=== PATIENT | female | born 1990 | race Two or more races ===

== ENCOUNTER → 2024-03-01 | Outpatient (CLI) | payer BC ==
[2024-03-01 13:18] LABS: Amphetamine Screen, Urine Neg (NEGATIVE); Barbiturate Scree,Urine Neg (NEGATIVE); Benzodiazephine Screen, Urine Neg (NEGATIVE); Cocaine Screen, Urine Neg (NEGATIVE)
[2024-03-01 13:19] LABS: Cannabinoid Screen, Urine Neg (NEGATIVE); Opiate Scree,Urine Neg (NEGATIVE); Phencyclidine Screen, Urine Neg (NEGATIVE)
[2024-03-02 07:07] LABS: RPR Non Reactive (Non Reactive)
[2024-03-02 08:06] LABS: Varicella Zoster IgG Antibody Non Reactive (Non Reactive)
[2024-03-03 04:06] LABS: Chlamydia Trachomatis, NAA Negative (Negative); Neisseria gonorrhoeae, NAA Negative (Negative)
== END | disposition home or self-care (01) ==
LOC: LAB 12:16
PROVIDERS: ATTEND Obstetrics & Gynecology
DX: Z34.80 Encounter for supervision of other normal pregnancy, unspecified trimester (principal); Z31.430 Encounter of female for testing for genetic disease carrier status for procreative management; N39.0 Urinary tract infection, site not specified
CPT/HCPCS: 36415; 80307; 86592; 86703; 86787; 86850; 86900; 86901; 87086; 87340

== ENCOUNTER 2024-03-18 08:08 | Emergency (ER) | payer BC ==
[~2024-03-18] VITALS: Ht 165.1 cm; Wt 96.1 kg
[2024-03-18 09:08] LABS: Urine Bacteria FEW /hpf (None Seen); Urine Blood 3+ /uL (Negative); Urine Clarity Ex.Turbid (Clear); Urine Color Light-Orange (Yellow); Urine Mucus FEW (None Seen); Urine Protein, UAD TRACE (Negative); Urine Specific Gravity 1.018 (1.001-1.035); Urine Urobilinogen Normal (Negative); Urine WBC 6 /hpf (0 - 5)
[2024-03-18 09:34] VITALS: BP 151/99; PULSE 118; RESP 16; TEMP 98.9; O2SAT 100
== END 2024-03-18 09:48 | disposition home or self-care (01) ==
LOC: ER 08:08
DX: O20.9 Hemorrhage in early pregnancy, unspecified (principal); R10.2 Pelvic and perineal pain; Z3A.11 11 weeks gestation of pregnancy
CPT/HCPCS: 36415; 76801; 81001; 84702

== ENCOUNTER 2024-05-19 12:03 | Emergency (ER) | payer BC ==
[~2024-05-19] VITALS: Ht 165.1 cm; Wt 97.6 kg
[2024-05-19 13:21] VITALS: BP 109/68; PULSE 107; RESP 18; TEMP 98.4; O2SAT 99
[2024-05-19] MEDS ORDERED: AZIT500T66 PO (13:25)
[2024-05-19] MEDS ORDERED: ACET-1304 PO (13:25)
--- NOTE | 2024-05-19 13:30 | ED.PDOC ---
Eye-HPI HPI Comments A 33 YEAR OLD FEMALE PRESENTS TO THE ED WITH COMPLAINT OF SORE THROAT. PATIENT STATES SHE HAS BEEN EXPERIENCING A SORE THROAT AND BODY ACHES FOR THE PAST 1 WEEK. PATIENT NOTES SHE IS CURRENTLY 20 WEEKS . PATIENT DENIES FEVER, CHILLS, SHORTNESS OF BREATH, CHEST PAIN, ABDOMINAL PAIN, NAUSEA, VOMITING, HEADACHE, OR OTHER COMPLAINTS. NO OTHER SYMPTOMS OR MODIFYING FACTORS AT THIS TIME. PATIENT IS ALERT, ORIENTED X 4, AND HAS STEADY GAIT. Chief Complaint: Sore Throat Time Seen by MD: 13:06 Primary Care Provider: MICHELLE Calderon Notes: Nurses Notes, Medications, Allergies Allergies: Coded Allergies: NO KNOWN ALLERGIES (Unverified , 03/18/24) Home Meds Active Scripts Acetaminophen (Tylenol Extra Strength Fo) 500 Mg Tab, 650 MG PO TID, #30 TAB Prov:MIGUE FOSTER 05/19/24 Azithromycin (Azithromycin) 500 Mg Tab, 1 TAB PO DAILY, #5 TAB Prov:MIGUE FOSTER 05/19/24 Information Source: Patient Mode of Arrival: Ambulatory Timing: Days Duration: Since onset, Days Prehospital treatment: None Quality: Pain, Red Lids: Normal Conjunctiva: Normal Cornea: Normal Pupils: Normal EOM: Normal Fundus: Normal Slit lamp exam: Normal Anterior chamber: Normal Mouth Location: Pharynx Mouth: Normal ENT Ear Exam: Normal, Normal, Normal Nose: Normal Sinuses: Normal Oropharynx: Tonsillar hypertrophy, Red Onset: Spontaneous Throat Exposed to: None History of: None Last Tetanus: Unknown Modifying factors: Nothing Associated signs and symptoms: Sore Throat Past Medical History PAST MEDICAL HISTORY: Denies Surgical History: Denies all surgeries RAT BREEDER History: Spontaneous Family History Family History: Reviewed,noncontributory to illness Social History Smoker: Non-Smoker Alcohol: Denies ETOH Use Drugs: Denies Drug Use Lives In: Home Constitutional: denies: chills, diaphoresis, fatigue, fever, malaise, sweats, weakness, others EENTM: reports: throat pain, throat swelling; denies: blurred vision, double vision, ear bleeding, ear discharge, ear drainage, ear pain, ear ringing, eye pain, eye redness, hearing loss, mouth pain, mouth swelling, nasal discharge, nose bleeding, nose congestion, nose pain, photophobia, tearing, voice changes, others Respiratory: denies: cough, hemoptysis, orthopnea, SOB at rest, shortness of breath, SOB with excertion, stridor, wheezing, others Cardiovascular: denies: chest pain, dizzy spells, diaphoresis, Dyspnea on exertion, edema, irregular heart beat, left arm pain, lightheadedness, palpitations, PND, syncope, others Gastrointestinal: denies: abdomen distended, abdominal pain, blood streaked bowels, constipated, diarrhea, dysphagia, difficulty swallowing, hematemesis, melena, nausea, poor appetite, poor fluid intake, rectal bleeding, rectal pain, vomiting, others Genitourinary: denies: abnormal vagina bleeding, burning, dyspareunia, dysuria, flank pain, frequency, hematuria, incontinence, pain, , vagina discharge, urgency, others Neurological: denies: dizziness, fainting, headache, left sided numbness, left sided weakness, numbness, paresthesia, pre-existing deficit, right sided numbness, right sided weakness, seizure, speech problems, tingling, tremors, weakness, others Musculoskeletal: reports: muscle pain; denies: back pain, gout, joint pain, joint swelling, muscle stiffness, neck pain, others Integumetry: denies: bruises, change in color, change in hair/nails, dryness, laceration, lesions, lumps, rash, wounds, others Allergic/Immunocompromised: denies: Difficulty Healing, Frequent Infections, Hives, Itching, others Hematologic/Lymphatic: denies: anemia, blood clots, easy bleeding, easy bruising, swollen glands, others Endocrine: denies: excessive hunger, excessive sweating, excessive thirst, excessive urination, flushing, intolerance to cold, intolerance to heat, unexplained weight gain, unexplained weight loss, others Psychiatric: denies: anxiety, bipolar disorder, depression, hopeless, panic disorder, schizophrenia, sleepless, suicidal, others All Other Systems: Reviewed and Negative Physical Exam General Appearance: No Apparent Distress, Normal HEENT: PERRL/EOMI, Pharyngeal Erythema (TONSILLAR SWELLING, NO EXUDATES. ), TMs Normal Neck: Full Range of Motion, Non-Tender, Normal, Normal Inspection Respiratory: Chest Non-Tender, Lungs Clear, No Accessory Muscle Use, No Respiratory Distress, Normal Breath Sounds Cardiovascular: No Edema, No JVD, No Murmur, No Gallop, Normal Peripheral Pulses, Regular Rate/Rhythm Breast Exam: Deferred Gastrointestinal: No Organomegaly, Non Tender, No Pulsatile Mass, Normal Bowel Sounds, Soft Genitalia: Deferred Pelvic: Deferred Rectal: Deferred Extremities: No calf tenderness, Normal capillary refill, Normal inspection, Normal range of motion, Non-tender, No pedal edema Musculoskeletal : Apperance: Normal Neurologic: Alert, dental laboratory technology teacher II-XII nml as Tested, No Motor Deficits, Normal Affect, Normal Mood, No Sensory Deficits Cerebellar Function: Normal Reflexes: Normal Skin: Dry, Normal Color, Warm Peripheral Pulses: 2+ carotid (R), 2+ carotid (L), 2+ dorsalis pedis (R), 2+ dorsalis pedis (L) Lymphatic: No Adenopathy Was a procedure done? Was a procedure done?: No EENT DIFF Eye: N/A Ear: Otitis Media, Pharyngitis, Sinusitis Nose: N/A Mouth: N/A Sore Throat: Pharyngitis, Streptococcal, Viral Pharyngitis, URI X-Ray, Labs, Meds, VS Vital Signs Date Time Temp Pulse Resp B/P (MAP) Pulse Ox O2 Delivery O2 Flow Rate FiO2 05/19/24 13:21 107 18 99 Room Air 05/19/24 13:21 98.4 107 18 109/68 (82) 99 98.4 05/19/24 12:22 98.4 107 18 109/68 (82) 99 X-Ray, Labs, Meds, VS Comment EXTERNAL MEDICAL RECORDS REVIEWED: [NONE] INDEPENDENT HISTORIANS: [NONE] SOCIAL DETERMINANTS OF HEALTH: [NONE] LABS ORDERED: NONE REVIEWED AND INTERPRETED RESULTS: NONE IMAGING ORDERED: NONE TREATMENTS ORDERED: NONE PROCEDURES PERFORMED: NONE CRITICAL CARE TIME: NONE I HAVE DISCUSSED THE PATIENT WITH THE ATTENDING PHYSICIAN DR. OLSON AND HE AGREES WITH THE PATIENT'S PLAN OF CARE AND DISPOSITION. BASED ON HISTORY OF PRESENT ILLNESS, AND PHYSICAL EXAM, PATIENT WILL BE DISCHARGED HOME. SHARED DECISION MAKING: PATIENT INSTRUCTED TO FOLLOW UP WITH PRIMARY CARE PROVIDER IN 1-2 DAYS FOR RE-EVALUATION OF SYMPTOMS. PATIENT VERBALIZES UNDERSTANDING TO RETURN TO ED FOR NEW OR WORSENING SYMPTOMS OR IF FOLLOW UP WITH PCP CANNOT BE OBTAINED. PATIENT FEELS COMFORTABLE GOING HOME AT THIS TIME. ALL QUESTIONS ADDRESSED AT TIME OF DISCHARGE. Time of 1ST Reevaluation: 13:33 Reevaluation 1ST: Improved Patient Education/Counseling: Diagnosis, Treatment, Need For Follow Up Family Education/Counseling: Diagnosis, Treatment, Need For Follow Up Medical Screening: No EMC Exist At This Time Departure 1 Departure Time of Disposition: 13:34 Impression: Primary Impression: Acute tonsillitis Qualified Codes: J03.90 - Acute tonsillitis, unspecified Disposition: HOME / SELF CARE / HOMELESS Condition: Stable Additional Instructions: FOLLOW-UP WITH PCP AND DIRECTOR LIFE IN 1 TO 2 DAYS. TAKE MEDICATIONS PRESCRIBED. RETURN TO ED FOR ANY NEW OR WORSENING SYMPTOMS. e-Prescriptions Acetaminophen (Tylenol Extra Strength Fo) 500 Mg Tab 650 MG PO TID, #30 TAB Prov: IMGUE FOSTER 05/19/24 Azithromycin (Azithromycin) 500 Mg Tab 1 TAB PO DAILY, #5 TAB Prov: MIGUE FOSTER 05/19/24 Discharged With: Self Critical Care Note Critical Care Time?: No Stability Stability form required: No I personally scribed for MIGUE FOSTER ([email or web address]) on 05/19/24 at 13:30. Electronically submitted by Elia Bethea ([email or web address]). MIGUE FOSTER May 19, 2024 13:30
== END 2024-05-19 13:38 | disposition home or self-care (01) ==
LOC: ER 12:12
DX: O99.512 Diseases of the respiratory system complicating pregnancy, second trimester (principal); J03.90 Acute tonsillitis, unspecified; Z79.899 Other long term (current) drug therapy; Z3A.20 20 weeks gestation of pregnancy

== ENCOUNTER → 2024-07-13 | Outpatient (CLI) | payer BC ==
[~2024-07-13] MED LIST: ACET-1304 PO; AZIT500T66 PO
[2024-07-13 07:37] LABS: Basophils # (auto) 0 10 ^3/uL (0-0.2); Basophils % (auto) 0.1 % (0.0-2.0); Eosinophils # (auto) 0.1 10 ^3/uL (0-0.8); Eosinophils % (auto) 0.7 % (0.0-7.0); Hematocrit 41.3 % (36.0-46.0); Hemoglobin 13.7 g/dL (12.2-16.2); Lymphocytes # (auto) 2.7 10 ^3/uL (0.4-5.4); Lymphocytes % (auto) 20.7 % (10.0-50.0); Mean Corpuscular Hemoglobin 29.3 pg (28.0-32.0); Mean Corpuscular Hgb Conc. 33.1 g/dL (32.0-36.0); Mean Corpuscular Volume 88.6 fL (80.0-100.0); Monocytes # (auto) 0.9 10 ^3/uL (0-1.3); Monocytes % (auto) 7.1 % (0.0-12.0); Neutrophils # (auto) 9.3 10 ^3/uL (1.6-8.6); Neutrophils % (auto) 71.4 % (37.0-80.0); Nucleated Red Blood Cells % 0.1 %; Platelet Count (auto) 259 10^3/uL (140-450); Red Blood Cells 4.66 10^6/uL (4.0-5.20); Red Cell Distribution Width 12.8 % (11.8-14.3)
[2024-07-14 08:07] LABS: RPR Non Reactive (Non Reactive)
[2024-07-14 11:07] LABS: Rubeola IgG Antibody <13.5 AU/mL (Immune >16.4)
== END | disposition home or self-care (01) ==
LOC: LAB 07-08 08:06
DX: O09.90 Supervision of high risk pregnancy, unspecified, unspecified trimester (principal); Z3A.00 Weeks of gestation of pregnancy not specified
CPT/HCPCS: 36415; 82951; 85025; 86592; 86703; 86765

== ENCOUNTER 2024-09-10 09:50 | Observation (INO) | payer BC ==
--- NOTE | 2024-09-10 10:27 | DVHDS2 ---
Physician Discharge Progress N Final Diagnosis: IUP 36.5 wk, GDMA2, AMA Secondary Diagnosis: Encounter for surveillance Operations or Procedures: Operations or Procedures NST/BPP /LOUIE all normal Commentary: Commentary Not in labor Condition on Discharge: Stable Disposition: Home Discharge Instructions: Diet: Consistent carbohydrate Activity: Light activity Follow Up/Referral: as scheduled Medications: NA Follow Up Care: Discharge Statement: "Patient was advised to return to the ER or call 911 if any headaches, dizziness, shortness of breath, chest pain, abdominal pain, bleeding, fevers, or worsening of medical condition. Patient was counseled about treatment plan, medications, possible side effects, patientverbalized understanding. All questions were answered to the best of my ability. This discharge took greater then 30 minutes in planning, reviewing documentation, counseling the patient, and discussing with other team members." Visit Coding OBGYN Date of Service: Sep 10, 2024 Billing Provider: DANNY CARMONA DO NUTS AND BOLTS ASSEMBLER Common Visit Codes: 91442-XVR/OBS SAME DATE (HIGH) DANNY CARMONA DO Sep 10, 2024 10:27
--- NOTE | 2024-09-10 10:36 | DVH ---
OB ULTRASOUND, LIMITED CLINICAL INDICATION: gdma2/ama TECHNIQUE: Multiple grayscale ultrasound and M-mode images were obtained of the pelvis for evaluation of intrauterine . COMPARISON: None FINDINGS /impression: A single living fetus is seen in cephalic presentation. Biophysical profile: 12/23 breathin movements: 2 tone: 2 Amniotic fluid: 2 Placenta: Posterior. Amniotic fluid: Visibly normal. LOUIE 8.85 cm heart rate: 155 beats/min. A complete anatomic survey was not performed on this exam.
[2024-09-10] MEDS ORDERED: PREN-96 PO (10:49)
== END 2024-09-10 11:17 | disposition home or self-care (01) ==
LOC: LDRP 09:50 → INTOOBSV 09:50
PROVIDERS: ADMIT Obstetrics & Gynecology; ATTEND Obstetrics & Gynecology
DX: O24.419 Gestational diabetes mellitus in pregnancy, unspecified control (principal); Z98.890 Other specified postprocedural states; Z79.899 Other long term (current) drug therapy; Z3A.36 36 weeks gestation of pregnancy
CPT/HCPCS: 76818; 81002; 82948; 82962; 94760; G0378; 76819

== ENCOUNTER 2024-09-13 13:50 | Observation (INO) | payer BC ==
[~2024-09-13 13:50] MED LIST changes: +PREN-96 PO
--- NOTE | 2024-09-13 15:26 | DVH ---
BIOPHYSICAL PROFILE HISTORY: GDMA2 Comparison Study: None available at time of dictation. TECHNIQUE: Multiple real-time grayscale sonographic images through the gravid uterus of the fetus wit h duplex doppler color flow and M-mode spectral analysis FINDINGS: BIOPHYSICAL PROFILE: breathing score: 2 movement score: 2 tone score: 2 Quantitative LOUIE score: 2 (LOUIE: 9.5 cm.) Total score: 8/8 Single live fetus in cephalic presentation. heart rate 147 beats per minute. Posterior placenta without previa or abruption Biophysical profile score 8/8 corresponding to an DAYA of 10/03/24 IMPRESSION: Biophysical profile score: 8/8
--- NOTE | 2024-09-13 22:57 | DVHDS2 ---
Physician Discharge Progress N Final Diagnosis: testing for GDM, A1/AMA Operations or Procedures: Operations or Procedures 34yo IUP@37.0wks VSS NST reactive FKC/labor precautions reviewed. Dr. Méndez consulted, agrees with POC. Other Interventions Other Interventions [address] [address] Ph: [phone] DIAGNOSTIC IMAGING Diagnostic Imaging Report : [id number] Signed PATIENT: HILDA PAL ACCT: [id number] UNIT: [id number] : 1990 LOC: [facility] ROOM / BED: [facility] / A AGE / SEX: 34 / F ADM STATUS: ADM IN SERVICE [id number] ORDERING PHYSICIAN: GUILLERMO DEVINE CNM PROCEDURE(s): BPP - BIOPHYSICAL PROFILE REASON: GDMA2 ORDER NUMBER(s): [id number], ACCESSION NUMBER(s): [id number] BIOPHYSICAL PROFILE HISTORY: GDMA2 Comparison Study: None available at time of dictation. TECHNIQUE: Multiple real-time grayscale sonographic images through the gravid uterus of the fetus with duplex doppler color flow and M-mode spectral analysis FINDINGS: BIOPHYSICAL PROFILE: breathing score: 2 movement score: 2 tone score: 2 Quantitative LOUIE score: 2 (LOUIE: 9.5 cm.) Total score: 8/8 Single live fetus in cephalic presentation. heart rate 147 beats per minute. Posterior placenta without previa or abruption Biophysical profile score 8/8 corresponding to an DAYA of 10/03/24 IMPRESSION: Biophysical profile score: 8/8 ATED BY: REHAN BRIGHT MD DICTATED DATE/TIME: 09/13/24 152 SIGNED BY: REHAN BRIGHT MD SIGNED DATE/TIME: 09/13/24 1524 CC: Condition on Discharge: Stable Disposition: Home Discharge Instructions: Diet: Consistent carbohydrate Activity: No Restrictions, As Tolerated Medications: see med list Follow Up Care: Specialist: f/u in 3 days Discharge Statement: "Patient was advised to return to the ER or call 911 if any headaches, dizziness, shortness of breath, chest pain, abdominal pain, bleeding, fevers, or worsening of medical condition. Patient was counseled about treatment plan, medications, possible side effects, patientverbalized understanding. All questions were answered to the best of my ability. This discharge took greater then 30 minutes in planning, reviewing documentation, counseling the patient, and discussing with other team members." Visit Coding OBGYN Date of Service: Sep 13, 2024 Billing Provider: GUILLERMO DEVINE CNM PRODUCT ENGINEER Common Visit Codes: [id number] OBS CARE (HIGH) PRODUCT ENGINEER Procedure Codes: 91194-72- NON-STRESS TEST GUILLERMO DEVINE CNM Sep 13, 2024 22:57
== END 2024-09-13 16:22 | disposition home or self-care (01) ==
LOC: LDRP 13:50
PROVIDERS: ADMIT Obstetrics & Gynecology; ATTEND Obstetrics & Gynecology
DX: O24.419 Gestational diabetes mellitus in pregnancy, unspecified control (principal); O09.513 Supervision of elderly primigravida, third trimester; Z98.890 Other specified postprocedural states; Z79.899 Other long term (current) drug therapy; Z3A.37 37 weeks gestation of pregnancy
CPT/HCPCS: 76818; 81002; 82948; 82962; 94760; G0378; 76819

== ENCOUNTER 2024-09-16 06:04 | Observation (INO) | payer BC ==
--- NOTE | 2024-09-16 10:03 | DVH ---
BIOPHYSICAL PROFILE HISTORY: GDMA1 Comparison Study: None available at time of dictation. TECHNIQUE: Multiple real-time grayscale sonographic images through the gravid uterus of the fetus wit h duplex doppler color flow and M-mode spectral analysis FINDINGS: BIOPHYSICAL PROFILE: breathing score: 2 movement score: 2 tone score: 2 Quantitative LOUIE score: 2 (LOUIE: 9.9 cm.) Total score: 8/8 Single live fetus in cephalic presentation. heart rate 132 beats per minute. Grade 3 fundal placenta without previa or abruption Biophysical profile score 8/8 corresponding to an DAYA of 10/03/24 IMPRESSION: Biophysical profile score: 8/8
--- NOTE | 2024-09-17 07:50 | DVHDS2 ---
Physician Discharge Progress N Final Diagnosis: iup at 37wks gdm Operations or Procedures: Operations or Procedures nst reviewed reactive ,sono nl Condition on Discharge: Good Disposition: Home Discharge Instructions: Diet: Consistent carbohydrate Activity: No Restrictions, As Tolerated Medications: na Follow Up Care: Specialist: 3d Discharge Statement: "Patient was advised to return to the ER or call 911 if any headaches, dizziness, shortness of breath, chest pain, abdominal pain, bleeding, fevers, or worsening of medical condition. Patient was counseled about treatment plan, medications, possible side effects, patientverbalized understanding. All questions were answered to the best of my ability. This discharge took greater then 30 minutes in planning, reviewing documentation, counseling the patient, and discussing with other team members." Visit Coding OBGYN Date of Service: September 16, 2024 Billing Provider: YAHIR HILL DO FINANCIAL SOLUTIONS ADVISOR Common Visit Codes: [id number] OBS CARE (HIGH) FINANCIAL SOLUTIONS ADVISOR Procedure Codes: 53178-29- NON-STRESS TEST YAHIR HILL DO September 17, 2024 07:50
== END 2024-09-16 10:13 | disposition home or self-care (01) ==
LOC: LDRP 08:52
PROVIDERS: ADMIT Obstetrics & Gynecology; ATTEND Obstetrics & Gynecology
DX: O24.419 Gestational diabetes mellitus in pregnancy, unspecified control (principal); Z98.890 Other specified postprocedural states; Z79.899 Other long term (current) drug therapy; Z3A.37 37 weeks gestation of pregnancy
CPT/HCPCS: 76818; 81002; 82948; 82962; 94760; G0378; 59025; 76819

== ENCOUNTER 2024-09-23 09:57 | Observation (INO) | payer BC ==
--- NOTE | 2024-09-23 11:11 | DVH ---
BIOPHYSICAL PROFILE HISTORY: GDMA1/AMA Comparison Study: US BIOPHYSICAL PROFILE on DOS: 09/16/24, US BIOPHYSICAL PROFILE on DOS: 09/13/24, US B IOPHYSICAL PROFILE on DOS: 09/10/24 TECHNIQUE: Multiple real-time grayscale sonographic images through the gravid uterus of the fetus wi th duplex Doppler color flow and M-mode spectral analysis FINDINGS: BIOPHYSICAL PROFILE: breathing score: 2 movement score: 2 tone score: 2 Quantitative LOUIE score: 2 (LOUIE: 9.0 Cm.) Total score: 8/8 The cervix is not visualied Single live fetus in cephalic presentation. heart rate 135 beats per minute. Grade 2, posterior placenta without previa or abruption IMPRESSION: Biophysical profile score: 8/8
--- NOTE | 2024-09-24 08:13 | DVHDS2 ---
Physician Discharge Progress N Final Diagnosis: gdm 38wks Operations or Procedures: Operations or Procedures nst reviewed ,sono Condition on Discharge: Good Disposition: Home Discharge Instructions: Diet: Consistent carbohydrate Activity: No Restrictions, As Tolerated Medications: na Follow Up Care: Specialist: 3d Discharge Statement: "Patient was advised to return to the ER or call 911 if any headaches, dizziness, shortness of breath, chest pain, abdominal pain, bleeding, fevers, or worsening of medical condition. Patient was counseled about treatment plan, medications, possible side effects, patientverbalized understanding. All questions were answered to the best of my ability. This discharge took greater then 30 minutes in planning, reviewing d ocumentation, counseling the patient, and discussing with other team members." Visit Coding OBGYN Date of Service: September 23, 2024 Billing Provider: YAHIR HILL DO NITROGLYCERIN SUPERVISOR Common Visit Codes: [id number] INP/OBS CARE (HIGH) NITROGLYCERIN SUPERVISOR Procedure Codes: 87575-28- NON-STRESS TEST YAHIR HILL DO September 24, 2024 08:13
== END 2024-09-23 11:30 | disposition home or self-care (01) ==
LOC: LDRP 09:57
PROVIDERS: ADMIT Obstetrics & Gynecology; ATTEND Obstetrics & Gynecology
DX: O24.419 Gestational diabetes mellitus in pregnancy, unspecified control (principal); Z3A.38 38 weeks gestation of pregnancy; Z79.899 Other long term (current) drug therapy; Z98.890 Other specified postprocedural states
CPT/HCPCS: 76818; 81002; 82948; 82962; 94760; G0378; 76819

== ENCOUNTER 2024-09-30 06:47 | Inpatient (IN) | payer BC ==
[~2024-09-30] VITALS: Ht 165.1 cm; Wt 103.4 kg
[2024-09-30] MEDS ORDERED: ONDANSETRON HCL 4 MG/2 ML VIAL IV PRN (23:45)
[2024-09-30] MEDS ORDERED: NALBUPHINE HCL 10 MG/1ml INJECTION IV PRN (23:45)
[2024-10-01 00:16] LABS: Basophils # (auto) 0.1 10 ^3/uL (0-0.2); Basophils % (auto) 0.5 % (0.0-2.0); Eosinophils # (auto) 0.1 10 ^3/uL (0-0.8); Eosinophils % (auto) 0.5 % (0.0-7.0); Hematocrit 39.8 % (36.0-46.0); Hemoglobin 13.7 g/dL (12.2-16.2); Lymphocytes # (auto) 2.9 10 ^3/uL (0.4-5.4); Lymphocytes % (auto) 21.3 % (10.0-50.0); Mean Corpuscular Hemoglobin 30.1 pg (28.0-32.0); Mean Corpuscular Hgb Conc. 34.4 g/dL (32.0-36.0); Mean Corpuscular Volume 87.6 fL (80.0-100.0); Monocytes % (auto) 7.6 % (0.0-12.0); Neutrophils # (auto) 9.5 10 ^3/uL (1.6-8.6); Neutrophils % (auto) 70.1 % (37.0-80.0); Nucleated Red Blood Cells % 0.1 %; Platelet Count (auto) 199 10^3/uL (140-450); Red Blood Cells 4.54 10^6/uL (4.0-5.20); Red Cell Distribution Width 13.5 % (11.8-14.3); White Blood Cell 13.6 10^3/uL (4.4-10.8)
[2024-10-01 00:26] LABS: Amphetamine Screen, Urine Neg (NEGATIVE); Barbiturate Scree,Urine Neg (NEGATIVE); Benzodiazephine Screen, Urine Neg (NEGATIVE); Cannabinoid Screen, Urine Neg (NEGATIVE); Cocaine Screen, Urine Neg (NEGATIVE); Opiate Scree,Urine Neg (NEGATIVE); Phencyclidine Screen, Urine Neg (NEGATIVE)
[2024-10-01 00:29] LABS: Alanine Aminotransferase 14 U/L (7-40); Albumin 4.1 g/dL (3.2-4.8); Alkaline Phosphatase 103 U/L (46-116); Anion Gap 10 (5-15); Aspartate Aminotransferase 17 U/L (13-40); Bilirubin, Total 0.3 mg/dL (0.2-1.0); Blood Urea Nitrogen 9 mg/dL (9-23); Calcium 9.5 mg/dL (8.7-10.4); Carbon Dioxide 22 mmol/L (20-31); Chloride 106 mmol/L (98-107); Glucose 81 mg/dL (74-106); INR 0.88 (0.9-1.15); Partial Thromboplastin Time 25.6 SEC (24.5-34.5); Potassium 3.8 mmol/L (3.5-5.1); Prothrombin Time 9.4 sec (9.3-11.8); Sodium 138 mmol/L (136-145); Total Protein 6.9 g/dL (5.7-8.2)
[2024-10-01 00:37] LABS: Urine Bacteria FEW /hpf (None Seen); Urine Blood Negative /uL (Negative); Urine Clarity Turbid (Clear); Urine Color Light-Yellow (Yellow); Urine Mucus FEW (None Seen); Urine Protein, UAD Negative (Negative); Urine Squamous Epithelial Cell FEW /hpf (<5); Urine Urobilinogen Normal (Negative); Urine WBC 7 /HPF (0-5)
[2024-10-01 01:48] LABS: Protein, Urine 19.4 mg/dL (1-14)
[2024-10-01 01:50] LABS: Creatinine, Urine 120.4 mg/dL (30.0-125.0); Urine Protein/Creatinine Ratio 0.16
[2024-10-01] MEDS: miSOPROStol 50 MCG per PRE-CUT 1/2 TAB PO PRN (02:22)
[2024-10-01] MEDS: PHISODERM TOP SOLN 240ML BTL TOP PRN (02:22)
[2024-10-01] MEDS: DERMOPLAST 60ML BOTTLE TOP PRN (02:23)
[2024-10-01] MEDS: LACTATED RINGER'S 1,000 ML IV SCH (02:23)
[2024-10-01] MEDS: WITCH HAZEL-GLYCERIN PAD TOP PRN (02:25)
[2024-10-01] MEDS ORDERED: PHISODERM TOP SOLN 240ML BTL TOP PRN (02:30)
--- NOTE | 2024-10-01 02:30 | DVHHP2 ---
OB CC & HPI Date Date of Admission: September 30, 2024 Patient Identification: : 3 Para: 0 EDC: October 03, 2024 EGA: 39+WKS Chief Complaints: Reason for admission: induction of labor Indication for : other (GDM AND AMA) Admission Nurse Assessment Rev: No History of Present Complaints PT IS ADMITTED FOR INDUCTION OF LABOR FOR GDM NONCOMPLIANCY AND AMA. PT WAS DIAGNOSED LATE FOR GDM BECAUSE SHE DID HER TESTING LATE AND NEVER HAD PROPER TESTING OR FU Past Medical History Cardiac: No pertinent Hx Pulmonary: No pertinent Hx Central Nervous System: No pertinent Hx GI: No pertinent Hx Hemotology/Oncology: No pertinent Hx Hepatobiliary: No pertinent Hx Psychiatric: No pertinent Hx Musculoskeletal: No pertinent Hx Rheumotologic: No pertinent Hx Infectious Disease: No peritnent Hx ENT: No pertinent Hx Renal/: No pertinent Hx Endocrine: No pertinent Hx Dermatology: No pertinent Hx Past Surgical History: No pertinent Hx OB History OB History Care: Good Care Ultrasounds: Normal mid trimester US Obstetrical Complications: Gestational Diabetes Medical Complications: None Allergies: Coded Allergies: NO KNOWN ALLERGIES (Unverified , 03/18/24) Home Meds Active Scripts Acetaminophen (Tylenol Extra Strength Fo) 500 Mg Tab, 650 MG PO TID, #30 TAB Prov:MIGUE FOSTER 05/19/24 Azithromycin (Azithromycin) 500 Mg Tab, 1 TAB PO DAILY, #5 TAB Prov:MIGUE FOSTER 05/19/24 Reported Medications Vit W/ Ferrous Fumara ( One Daily) Daily Tab, 1 TAB PO DAILY, #90 TAB 3 Refills 09/10/24 Current Medications Current Medications Medications (Trade) Dose Ordered Sig/Be Route PRN Reason Start Time Stop Time Status Last Admin Lactated Ringer's 1,000 ml @ 125 mls/hr Q8H IV 09/30/24 23:45 Nalbuphine HCl (Nubain) 10 mg Q4HP PRN IV MODERATE PAIN (4-6 PAIN SCALE) 09/30/24 23:45 Witch Osiris (Tucks) 1 pad PRN PRN TOP PERINEAL AREA DISCOMFORT 09/30/24 23:45 Sodium Lauryl Sulfate (Phisoderm) 240 ml PRN PRN TOP PERINEAL AREA DISCOMFORT 09/30/24 23:45 Benzocaine (Dermoplast) 1 applic PRN PRN TOP PERINEAL AREA DISCOMFORT 09/30/24 23:45 Misoprostol (Cytotec) 50 mcg Q4HPRN PRN PO CERVICAL RIPENING 09/30/24 23:45 Lidocaine HCl (Xylocaine) 20 ml ONCE PRN IJ PERINEAL AREA DISCOMFORT 09/30/24 23:45 Ondansetron HCl (Zofran) 4 mg Q6HPRN PRN IV NAUSEA / VOMITING 09/30/24 23:45 Family & Social History Family/Social History Blood Type: O+ Rubella: unknown RPR/VDRL: Negative GBS Status: Negative HBsAG: Negative Review of Systems Constitutional: No symptom reported Ears, Nose, & Throat: No symptom reported Eyes: No symptom reported Pulmonary/Respiratory: No symptom reported Cardiovascular: No symptom reported Gastrointestinal: No symptom reported Genitourinary: No symptom reported Musculoskeletal: No symptom reported Skin: No symptom reported Psychiatric: No symptom reported Endocrine: No symptom reported Hemotologic/Lymphatic: No symptom reported OB Admission Exam Physical Exam HEENT: TMs Normal, Fontanelles Normal, Nasal Mucosa Normal, Eyes non-injected, Oropharynx Normal, PERRLA, Moist Membranes, EOMI Heart: Rhythm Normal Lungs: Clear Abdomen: Non tender Extremities: Normal Reflexes: Normal Cervical Dilatation: 2cm Effacement: 50% Station: -2 Membranes: Intact Heart Rate: 130's Accelerations: Accelerations Present Decelerations: No Decelerations Short Term Variability: Present Jail Variability: Average (6-25) Contractions on Admission: 6-10 Minutes Apart Intensity: Moderate OB Plan Plan Admitting Diagnosis: INDUCTION OF LABOR FOR GDMA1 AND AMA Plan: Expectant Management Other Plan: INFORMED CONSENT OBTAINED Visit Coding OBGYN Date of Service: October 01, 2024 Billing Provider: YAHIR HILL DO IT TEACHER Common Visit Codes: [id number] OBS CARE (HIGH) IT TEACHER Procedure Codes: 62345-95- NON-STRESS TEST YAHIR HILL DO October 01, 2024 02:30
[2024-10-01] MEDS ORDERED: D5W/LACTATED RINGERS 1,000 ML IV PRN (04:40)
[2024-10-01] MEDS ORDERED: NALOXONE HCL 0.4 MG/ML VIAL IV ONE (08:30)
[2024-10-01] MEDS ORDERED: ePHEDrine SULFATE 50 MG/ML AMP IV ONE (08:30)
[2024-10-01] MEDS: ROPIVACAINE HCL 200 ML ONE (09:19)
[2024-10-01] MEDS: LIDOCAINE HCL 2 %PF INJ 10ML AMP IJ ONE (09:20)
[2024-10-01] MEDS: LACT. RINGERS/OXYTOCIN 20UNITS 1,000 ML IV SCH (09:59)
--- NOTE | 2024-10-01 16:01 | LDN2 ---
Labor and Delivery Note Date 10/01/24 Age 34 3 Para 1 AB 2 EDC 10/03/24 EGA 39.5 Diagnosis Term IUP, GDMA1, Induction of labor, GBS neg Vaginal Delivery: VTX Vacuum Assisted: Yes Placenta: Spontaneous Sex: Male Weight 7lb4oz Apgars 8/9 Amniotic Fluid: Clear Anesthesia Epidural Episiotomy: No Repaired with 2nd degree vagina/perineal laceration repaired w/ 3-0 Chromic Rectal exam negative, sphincter and rectum not involved. EBL 100 mL Labs Laboratory Tests 10/01/24 09:30: Rubella Antibody Equivocal 07/13/24 07:09: HIV (1&2) Antibody Negative 03/01/24 12:28: Hepatitis B Surface Antigen Negative Blood Bank 09/30/24 23:55: Blood Type O POSITIVE Complications None Comments/Significant Med Castro Verbal consent obtained for Kiwi Vacuum delivery. R/B/A discussed with patient, RN present at witness for consent. Patient agreed to proceed with vacuum. Indication: Categ 2 in second stage of labor, (recurrent severe variable decelerations) and maternal exhaustion, and OP presentation Findings: Cx 10 cm dilated, pelvis adequate, EFW 3400gm, bladder empty. head direct occiput posterior (OP) position, molding present. Procedure: Kiwi vac applied at vertex, 1 application with 2 pulls. Pulling only gently with maternal effort and with onset of contractions. Successful extraction. no dystocia or complications. Liveborn male fetus, apgars 8/9 weight 7lb 4oz. Cord gases obtained, results pending (due to categ 2 FHR). Placenta spont. delivered, 3VC. EBL 100 ml 2nd deg lac repaired w/ 2-0 Chromic Mother and baby doing well. To for recovery. Visit Coding OBGYN Date of Service: October 02, 2024 Billing Provider: DANNY CARMONA DO WELL TESTER Common Visit Codes: [id number] INP/OBS CARE(MOD) DANNY CARMONA DO October 01, 2024 16:01
[2024-10-01] MEDS: LACT. RINGERS/OXYTOCIN 20UNITS 500 ML IV ONE ×2 (17:04→17:05)
[2024-10-01] MEDS ORDERED: ACETAMINOPHEN 325 MG TAB PO PRN (17:15)
[2024-10-01] MEDS: LIDOCAINE 2%HCL (LOCAL ANESTH.) INJ 20ML MDV IJ PRN (18:46)
[2024-10-01 19:00] VITALS: BP 131/78; PULSE 100; RESP 16; TEMP 98.4; O2SAT 96
[2024-10-01] MEDS: IBUPROFEN 600 MG TAB PO PRN (19:14)
[2024-10-01] MEDS ORDERED: DOCUSATE SOD 100 MG CAP PO SCH (22:00)
[2024-10-01 23:00] VITALS: BP 123/84; PULSE 88; RESP 16; TEMP 98.8; O2SAT 97
[2024-10-02 03:00] VITALS: BP 116/83; PULSE 74; RESP 18; TEMP 98; O2SAT 97
--- NOTE | 2024-10-02 06:12 | DVHPN2 ---
Progress Note Date Seen: October 02, 2024 Subjective PPD#1 s/p Vacuum Assisted Vaginal Delivery, GDMA1 S: Doing well. Minimal cramps, no pain. lochia normal flow vital signs Vital Sign Date Time Temp Pulse Resp B/P (MAP) Pulse Ox O2 Delivery O2 Flow Rate FiO2 10/02/24 03:00 98.0 74 18 116/83 (94) 97 98.0 10/01/24 17:45 Room Air medications Current Medications Medications Dose Ordered Sig/Be Route Start Time Stop Time Status Last Admin Dose Admin Witch Osiris 1 pad PRN PRN TOP 09/30/24 23:45 10/01/24 02:25 1 PAD Sodium Lauryl Sulfate 240 ml PRN PRN TOP 09/30/24 23:45 10/01/24 02:22 240 ML Benzocaine 1 applic PRN PRN TOP 09/30/24 23:45 10/01/24 02:23 1 APPLIC Lidocaine HCl 20 ml ONCE PRN IJ 09/30/24 23:45 Sodium Lauryl Sulfate 1 ml DAILY PRN TOP 10/01/24 02:30 Ibuprofen 600 mg Q6HP PRN PO 10/01/24 17:15 10/01/24 19:14 600 MG Acetaminophen 650 mg Q4HP PRN PO 10/01/24 17:15 Docusate Sodium 200 mg HS PO 10/01/24 22:00 laboratory and microbiology Laboratory Tests 09/30/24 23:55 Test 09/30/24 23:55 Range/Units Serum Glucose 81 74-106 mg/dL Objective O: AFVSS Chest: heart and lung sounds normal. Abd soft, non-tender, fundus firm, BS, no rebound or guarding, Ext Neg Homans, Non-tender, edema Lochia - minimal Labs pending Assessment/Plan PPD#1 s/p VAVD, doing well GDMA1, BS well controlled. plan: Continue supportive care Possible D/C later or tomorrow, if stable Plan discussed with: Patient Visit Coding OBGYN Date of Service: October 02, 2024 Billing Provider: DANNY CARMONA DO INTERNET SYSTEMS ADMINISTRATOR Common Visit Codes: [id number] INP/OBS CARE(MOD) DANNY CARMONA DO October 02, 2024 06:12
--- NOTE | 2024-10-02 06:47 | DVHDS2 ---
Physician Discharge Progress N Final Diagnosis: Term IUP 39+ wk, GDMA1 Secondary Diagnosis: Induction of labor with Vaginal delivery Operations or Procedures: Operations or Procedures Vacuum assisted vaginal delivery, repair 2nd deg laceration Commentary: Commentary Normal labor and delivery. baby OP, vacuum delivery necessary Normal pp course GDMA1, blood sugars well controlled Condition on Discharge: Stable Disposition: Home Discharge Instructions: Diet: Regular Activity: Light activity Follow Up/Referral: [address] Méndez Medications: see eRx Follow Up Care: Discharge Statement: "Patient was advised to return to the ER or call 911 if any headaches, dizziness, shortness of breath, chest pain, abdominal pain, bleeding, fevers, or worsening of medical condition. Patient was counseled about treatment plan, medications, possible side effects, patientverbalized understanding. All questions were answered to the best of my ability. This discharge took greater then 30 minutes in planning, reviewing documentation, counseling the patient, and discussing with other team members." Visit Coding OBGYN Date of Service: October 02, 2024 Billing Provider: DANNY CARMONA DO CONTENT [employer]ODUCER Common Visit Codes: 87796-XAU/OBS DISCH DAY <30MIN DANNY CARMONA DO October 02, 2024 06:47
[2024-10-02] MEDS ORDERED: IBU600T PO (06:48)
[2024-10-02 07:00] VITALS: BP 122/80; PULSE 82; RESP 18; TEMP 98.1; O2SAT 98
[2024-10-02 11:00] VITALS: BP 123/87; PULSE 86; RESP 18; TEMP 98; O2SAT 98
[2024-10-02 15:00] VITALS: BP 127/76; PULSE 96; RESP 18; TEMP 97.8; O2SAT 98
[2024-10-02 15:40] VITALS: TEMP 36.6
== END 2024-10-02 17:06 | disposition home or self-care (01) | DRG 807 ==
LOC: LDRP 23:08 → NUR 10-01 19:12 → LDRP 10-01 20:45
PROVIDERS: ADMIT Obstetrics & Gynecology; ATTEND Obstetrics & Gynecology
PROC: 10D07Z6 Extraction of Products of Conception, Vacuum, Via Natural or Artificial Opening (ICD-10-PCS; principal; 2024-10-01)
PROC: 0KQM0ZZ Repair Perineum Muscle, Open Approach (ICD-10-PCS; 2024-10-01)
PROC: 3E0R3BZ Introduction of Anesthetic Agent into Spinal Canal, Percutaneous Approach (ICD-10-PCS; 2024-10-01)
PROC: 00HU33Z Insertion of Infusion Device into Spinal Canal, Percutaneous Approach (ICD-10-PCS; 2024-10-01)
DX: O24.420 Gestational diabetes mellitus in childbirth, diet controlled (principal); Z37.0 Single live birth; O70.1 Second degree perineal laceration during delivery; Z3A.39 39 weeks gestation of pregnancy
CPT/HCPCS: 36415; 59025; 59409; 62282; 80053; 80307; 81001; 82570; 82962; 84156; 84550; 85025; 85610; 85730; 86762; 86780; 86803; 86850; 86900; 86901; 94760; 96360; 96361; 96365; 96366; G0378; J2590

== ENCOUNTER 2025-01-14 23:13 | Inpatient (IN) | payer BC, OTHER ==
[~2025-01-14] VITALS: Ht 165.1 cm; Wt 101.4 kg
[~2025-01-14 23:13] MED LIST changes: -ACET-1304 PO; -AZIT500T66 PO; +IBU600T PO
--- NOTE | 2025-01-14 23:43 | ED.PDOC ---
GI ASSESSMENT HPI Comments 34-year-old female came to ER for abdominal pain. Patient has been having episodes of abdominal pain for the past few weeks. Earlier today, after having dinner, she started having sharp, cramping epigastric abdominal pain, nonradiating. Denies any nausea or vomiting. Denies any history of abdominal surgeries. Denies any possibility of . Chief Complaint: Abdominal Pain Time Seen by MD: 23:42 Primary Care Provider: MICHELLE Calderon Notes: Nurses Notes Allergies: Coded Allergies: NO KNOWN ALLERGIES (Unverified , 03/18/24) Home Meds Active Scripts Ibuprofen Micronized (MOTRIN TABLET) 600 Mg Tb, 600 MG PO Q6HP PRN, #30 TAB Prov:DANNY CARMONA DO 10/02/24 Reported Medications Vit W/ Ferrous Fumara ( One Daily) Daily Tab, 1 TAB PO DAILY, #90 TAB 3 Refills 09/10/24 Information Source: Patient Mode of Arrival: Ambulatory Timing: Hours Duration: Since onset Prehospital treatment: None Quality: Cramping, Sharp Vomitus: None Stool: Normal Severity: Moderate Recent: Possible spoiled food Recent Hx of: None Pain Location: Epigastric Associated sign and symptoms: Abdominal Pain Past Medical History PAST MEDICAL HISTORY: Denies Surgical History: Denies all surgeries PATIENT REGISTRATION REP History: Spontaneous Family History Family History: Reviewed,noncontributory to illness Social History Smoker: Non-Smoker Alcohol: Denies ETOH Use Drugs: Denies Drug Use Lives In: Home Constitutional: denies: chills, diaphoresis, fatigue, fever, malaise, sweats, weakness, others EENTM: denies: blurred vision, double vision, ear bleeding, ear discharge, ear drainage, ear pain, ear ringing, eye pain, eye redness, hearing loss, mouth pain , mouth swelling, nasal discharge, nose bleeding, nose congestion, nose pain, photophobia, tearing, throat pain, throat swelling, voice changes, others Respiratory: denies: cough, hemoptysis, orthopnea, SOB at rest, shortness of breath, SOB with excertion, stridor, wheezing, others Cardiovascular: denies: chest pain, dizzy spells, diaphoresis, Dyspnea on exertion, edema, irregular heart beat, left arm pain, lightheadedness, palpitations, PND, syncope, others Gastrointestinal: reports: abdominal pain; denies: abdomen distended, blood streaked bowels, constipated, diarrhea, dysphagia, difficulty swallowing, hematemesis, melena, nausea, poor appetite, poor fluid intake, rectal bleeding, rectal pain, vomiting, others Genitourinary: denies: abnormal vagina bleeding, burning, dyspareunia, dysuria, flank pain, frequency, hematuria, incontinence, pain, , vagina discharge, urgency, others Neurological: denies: dizziness, fainting, headache, left sided numbness, left sided weakness, numbness, paresthesia, pre-existing deficit, right sided numbness, right sided weakness, seizure, speech problems, tingling, tremors, weakness, others Musculoskeletal: denies: back pain, gout, joint pain, joint swelling, muscle pain, muscle stiffness, neck pain, others Integumetry: denies: bruises, change in color, change in hair/nails, dryness, laceration, lesions, lumps, rash, wounds, others Allergic/Immunocompromised: denies: Difficulty Healing, Frequent Infections, Hives, Itching, others Hematologic/Lymphatic: denies: anemia, blood clots, easy bleeding, easy bruising, swollen glands, others Endocrine: denies: excessive hunger, excessive sweating, excessive thirst, excessive urination, flushing, intolerance to cold, intolerance to heat, unexplained weight gain, unexplained weight loss, others Psychiatric: denies: anxiety, bipolar disorder, depression, hopeless, panic disorder, schizophrenia, sleepless, suicidal, others Physical Exam General Appearance: No Apparent Distress, Normal HEENT: Normal ENT Inspection, Pharynx Normal, TMs Normal Neck: Full Range of Motion, Non-Tender, Normal, Normal Inspection Respiratory: Chest Non-Tender, Lungs Clear, No Accessory Muscle Use, No Respira tory Distress, Normal Breath Sounds Cardiovascular: No Edema, No JVD, No Murmur, No Gallop, Normal Peripheral Pulses, Regular Rate/Rhythm Breast Exam: Deferred Gastrointestinal: No Organomegaly, Non Tender, No Pulsatile Mass, Normal Bowel Sounds, Soft Genitalia: Deferred Pelvic: Deferred Rectal: Deferred Extremities: No calf tenderness, Normal capillary refill, Normal inspection, Normal range of motion, Non-tender, No pedal edema Musculoskeletal : Apperance: Normal Neurologic: Alert, supervisor film processing II-XII nml as Tested, No Motor Deficits, Normal Affect, Normal Mood, No Sensory Deficits Cerebellar Function: Normal Reflexes: Normal Skin: Dry, Normal Color, Warm Lymphatic: No Adenopathy Was a procedure done? Was a procedure done?: No GI differential Dx Differential Diagnosis: Cholecystitis, Constipation, Diverticular disease, Gastritis/PUD, Gastroenteritis, Hepatitis, Pancreatitis, UTI, Urolithiasis, X-Ray, Labs, Meds, VS Vital Signs Date Time Temp Pulse Resp B/P (MAP) Pulse Ox O2 Delivery O2 Flow Rate FiO2 01/15/25 01:06 97.6 93 22 140/87 (104) 100 97.6 01/14/25 23:14 97.7 99 18 144/95 100 97.7 Lab Test 01/14/25 23:47 01/14/25 23:35 Range/Units White Blood Count 13.0 H 4.4-10.8 10^3/uL Red Blood Count 4.77 4.0-5.20 10^6/uL Hemoglobin 14.0 12.2-16.2 g/dL Hematocrit 41.5 36.0-46.0 % Mean Corpuscular Volume 87.0 80.0-100.0 fL Mean Corpuscular Hemoglobin 29.2 28.0-32.0 pg Mean Corpuscular Hemoglobin Concent 33.6 32.0-36.0 g/dL Red Cell Distribution Width 13.0 11.8-14.3 % Platelet Count 288 140-450 10^3/uL Mean Platelet Volume 9.2 6.9-10.8 fL Neutrophils (%) (Auto) 61.1 37.0-80.0 % Lymphocytes (%) (Auto) 28.6 10.0-50.0 % Monocytes (%) (Auto) 8.6 0.0-12.0 % Eosinophils (%) (Auto) 1.3 0.0-7.0 % Basophils (%) (Auto) 0.4 0.0-2.0 % Neutrophils # (Auto) 7.9 1.6-8.6 10 ^3/uL Lymphocytes # (Auto) 3.7 0.4-5.4 10 ^3/uL Monocytes # (Auto) 1.1 0-1.3 10 ^3/uL Eosinophils # (Auto) 0.2 0-0.8 10 ^3/uL Basophils # (Auto) 0.1 0-0.2 10 ^3/uL Nucleated Red Blood Cells 0.0 % Sodium Level 139 136-145 mmol/L Potassium Level 3.5 3.5-5.1 mmol/L Chloride Level 102 98-107 mmol/L Carbon Dioxide Level 29 20-31 mmol/L Anion Gap 8 5-15 Blood Urea Nitrogen 12 9-23 mg/dL Creatinine 0.91 0.550-1.02 mg/dL Glomerular Filtration Rate Calc 84 >90 mL/min BUN/Creatinine Ratio 13.2 10.0-20.0 Serum Glucose 110 H 74-106 mg/dL Calcium Level 9.3 8.7-10.4 mg/dL Total Bilirubin 0.2 0.2-1.0 mg/dL Aspartate Amino Transferase (AST) 21 13-40 U/L Alanine Aminotransferase (ALT) 25 7-40 U/L Alkaline Phosphatase 89 46-116 U/L Total Protein 7.7 5.7-8.2 g/dL Albumin 4.5 3.2-4.8 g/dL Lipase 39 12-53 U/L Beta HCG, Quantitative < 0.0 L 1.5-4.2 mIU/mL Urine Color Light-yellow Yellow Urine Clarity Clear Clear Urine pH 6.0 5.0-9.0 Urine Specific [place] 1.016 1.001-1.035 Urine Protein Negative Negative Urine Ketones Negative Negative Urine Blood 3+ H Negative /uL Urine Nitrite Negative Negative Urine Bilirubin Negative Negative Urine Urobilinogen Normal Negative mg/dL Urine Leukocyte Esterase Negative Negative /uL Urine RBC 182 0 - 4 /hpf Urine Microscopic WBC 4 0-5 /HPF Urine Squamous Epithelial Cells Few <5 /hpf Urine Transitional Epithelial Cells Few <2 /hpf Urine Bacteria Few H None Seen /hpf Urine Mucus Few None Seen Urine Glucose Normal Normal mg/dL Urine Test Negative Negative Current Medications Medications (Trade) Dose Ordered Sig/Be Route Start Time Stop Time Status Last Admin Ondansetron HCl (Zofran Po) 4 mg ONCE ONCE PO 01/14/25 23:45 01/14/25 23:46 DC 01/15/25 01:05 Al Hydrox/Mg Hydrox/Simethicone (Maalox Plus) 30 ml ONCE ONCE PO 01/14/25 23:45 01/14/25 23:46 DC 01/14/25 23:45 Famotidine (Pepcid Tablet) 20 mg ONCE ONCE PO 01/14/25 23:45 01/14/25 23:46 DC 01/15/25 01:05 RIGHT UPPER QUADRANT ABDOMINAL ULTRASOUND CLINICAL HISTORY: RUQ pain COMPARISON: None TECHNIQUE: Grayscale and color Doppler ultrasound imaging of the right upper quadrant is performed. FINDINGS: Pancreas: Obscured by artifact from bowel gas. Liver: Measures approximately 17 cm in length. Increased parenchymal echogenicity. No discrete hepatic lesions as visualized. The portal vein appears patent. Gallbladder: Dependent gallstones noted. Gallbladder distention. No gallbladder wall thickening. Positive sonographic lópez's sign. Common bile duct: Mildly prominent at approximately 5 mm. Right Kidney: Measures 10.8 cm in length. No hydronephrosis. Right upper quadrant Inferior vena cava: Visualized portions are grossly patent. IMPRESSION: Cholelithiasis with positive sonographic lópez's sign. No gallbladder wall thickening. Findings suggest but are otherwise equivocal for cholecystitis. Please correlate clinically. Mild prominence of the common bile duct without a sizable, intraductal lesion identified. Distal ductal obstruction can not be excluded. MRCP may be considered to further evaluate these findings. Time of 1ST Reevaluation: 23:39 Reevaluation 1ST: Unchanged Patient Education/Counseling: Diagnosis, Treatment Family Education/Counseling: No Family Present SEPSIS Sepsis Screen Date sepsis recognized/suspect: Jan 14, 2025 Time Sepsis recognized/suspect: 2315 Recent Procedure: No On Antibiotic Therapy: No Respiratory Rate >20: No Heart Rate >90: No Temp<36 C (96.8 F) or >38.3 C: No SBP <90 or MAP <65 mmHG: No New Acute Mental Status Change: No Is the patient on CPAP, BIPAP,: No Physician Orders Gallbladder (01/14/25 23:00) Vital Signs Date Time Temp Pulse Resp B/P (MAP) Pulse Ox O2 Delivery O2 Flow Rate FiO2 01/15/25 01:06 97.6 93 22 140/87 (104) 100 97.6 01/14/25 23:14 97.7 99 18 144/95 100 97.7 Laboratory Tests Test 01/14/25 23:47 White Blood Count 13.0 10^3/uL (4.4-10.8) H Medications Medications Dose Ordered Sig/Be Route Start Time Stop Time Status Last Admin Dose Admin Al Hydrox/Mg Hydrox/Simethicone 30 ml ONCE ONCE PO 01/14/25 23:45 01/14/25 23:46 DC 01/14/25 23:45 Famotidine 20 mg ONCE ONCE PO 01/14/25 23:45 01/14/25 23:46 DC 01/15/25 01:05 Ondansetron HCl 4 mg ONCE ONCE PO 01/14/25 23:45 01/14/25 23:46 DC 01/15/25 01:05 Departure 1 Departure Time of Disposition: : Impression: Primary Impression: Upper abdominal pain Disposition: HOME / SELF CARE / HOMELESS Admit to: Med Surg Condition: Stable Discharged With: Self Critical Care Note Critical Care Time?: No Stability Stability form required: No Heart Score Heart Score: Heart Score Response (Comments) Value History N/A 0 EKG N/A 0 Age N/A 0 Risk Factors N/A 0 Troponin N/A 0 Total 0 I personally scribed for DONTA FABIAN MD ([email or web address]) on 01/14/25 at 23:43. Electronically submitted by Wallace Eddy ([employer]). I personally scribed for DONTA FABIAN MD ([email or web address]) on 01/15/25 at 01:07. Electronically submitted by Wallace Eddy ([email or web address]). DONTA FABIAN MD Jan 14, 2025 23:43
[2025-01-14] MEDS: MAALOX PLUS or MAALOX 30 ML PO ONE (23:45)
[2025-01-14 23:59] LABS: Hematocrit 41.5 % (36.0-46.0); Hemoglobin 14.0 g/dL (12.2-16.2); Mean Corpuscular Hemoglobin 29.2 pg (28.0-32.0); Mean Corpuscular Volume 87.0 fL (80.0-100.0); Nucleated Red Blood Cells % 0.0 %
[2025-01-15 00:18] LABS: Alanine Aminotransferase 25 U/L (7-40); Alkaline Phosphatase 89 U/L (46-116); Anion Gap 8 (5-15); Calcium 9.3 mg/dL (8.7-10.4); Carbon Dioxide 29 mmol/L (20-31); Chloride 102 mmol/L (98-107); Lipase 39 U/L (12-53); Sodium 139 mmol/L (136-145); Total Protein 7.7 g/dL (5.7-8.2)
[2025-01-15 00:19] LABS: Albumin 4.5 g/dL (3.2-4.8); BUN/Creatinine Ratio 13.2 (10.0-20.0); Blood Urea Nitrogen 12 mg/dL (9-23)
[2025-01-15 00:24] LABS: Bilirubin, Total 0.2 mg/dL (0.2-1.0); Glucose 110 mg/dL (74-106); Potassium 3.5 mmol/L (3.5-5.1)
--- NOTE | 2025-01-15 00:50 | DVH ---
RIGHT UPPER QUADRANT ABDOMINAL ULTRASOUND CLINICAL HISTORY: RUQ pain COMPARISON: None TECHNIQUE: Grayscale and color Doppler ultrasound imaging of the right upper quadrant is performed. FINDINGS: Pancreas: Obscured by artifact from bowel gas. Liver: Measures approximately 17 cm in length. Increased parenchymal echogenicity. No discrete hepat ic lesions as visualized. The portal vein appears patent. Gallbladder: Dependent gallstones noted. Gallbladder distention. No gallbladder wall thickening. Po sitive sonographic lópez's sign. Common bile duct: Mildly prominent at approximately 5 mm. Right Kidney: Measures 10.8 cm in length. No hydronephrosis. Right upper quadrant Inferior vena cava: Visualized portions are grossly patent. IMPRESSION: Cholelithiasis with positive sonographic lópez's sign. No gallbladder wall thickening. Findings sugg est but are otherwise equivocal for cholecystitis. Please correlate clinically. Mild prominence of the common bile duct without a sizable, intraductal lesion identified. Distal duct al obstruction can not be excluded. MRCP may be considered to further evaluate these findings.
[2025-01-15] MEDS: FAMOTIDINE 20 MG TAB PO ONE (01:05)
[2025-01-15] MEDS: ONDANSETRON ODT 4 MG TAB PO ONE (01:05)
[2025-01-15 01:40] LABS: Urine Protein, UAD Negative (Negative)
[2025-01-15] MEDS ORDERED: ONDANSETRON HCL 4 MG/2 ML VIAL IV PRN (02:00)
[2025-01-15] MEDS ORDERED: MORPHINE SULFATE INJ 2 MG/ml SYRG IV PRN (02:00)
[2025-01-15] MEDS: SODIUM CHLORIDE 0.9% 1,000 ML IV SCH (02:00)
--- NOTE | 2025-01-15 02:07 | DVHHPRES ---
History of Present Illness Resident Creating Document: PHILIP HENDERSON History of Present Illness Patient is a 34-year-old female who is 3 months without any significant past medical history comes to the hospital for acute intractable abdominal pain. According to the patient pain started approximately around 8:00 p.m. on 01/14/2025, she localizes the pain to the midepigastrium with radiation to the right upper quadrant, describes the pain as constant 10/10 in intensity worsened with eating and relieved by lying on her side. Pain is associated with chills. Patient notes she has been experiencing similar pain off and on for the past many months, however current episode was more severe and persistent than prior episodes. On review of systems patient is complaining of chills and abdominal pain. Gallbladder ultrasound showed cholelithiasis with positive sonographic Pat's sign, no gallbladder wall thickening and mild prominence of CBD. Past Medical History Denies Past Surgical History Denies Past Social History Smoking: Denies Alcohol: Denies Drugs: Denies Lives with family Review of Systems Constitutional: Yes: Chills; No: Fever, Sweats, Weakness, Malaise, Other Eyes: No: Pain, Vision change, Conjunctivae inflammation, Eyelid inflammation, Other, Redness ENT: No: Ear pain, Ear discharge, Nose pain, Nose discharge, Nose congestion, Mouth pain, Mouth swelling, Throat pain, Throat swelling, Other Respiratory: No: Cough, Dry, Shortness of breath, SOB with excertion, Wheezing, Hemoptysis, Pleuritic Pain, Sputum, Wheezing, Other Cardiovascular: No: Chest Pain, Palpitations, Orthopnea, Paroxysmal Noc. Dyspnea, Edema, Lt Headedness, Other Gastrointestinal: Abdominal Pain; No: Nausea, Vomiting, Diarrhea, Constipation, Melena, Hematochezia, Other Genitourinary: No Dysuria, No Frequency, No Incontinence, No Hematuria, No Retention, No Other Musculoskeletal: No: other, neck pain, shoulder pain, arm pain, back pain, hand pain, leg pain, foot pain Skin: No: Rash, Lesions, Jaundice, Bruising, Other Neurological: No: Weakness, Numbness, Incoordination, Change in speech, Confusion, Seizures, Other Allergies: Coded Allergies: NO KNOWN ALLERGIES (Unverified , 03/18/24) Exam Vital Signs Vital Signs Date Time Temp Pulse Resp B/P (MAP) Pulse Ox O2 Delivery O2 Flow Rate FiO2 01/15/25 01:06 97.6 93 22 140/87 (104) 100 97.6 General Appearance: Alert, Oriented X3, Cooperative, moderate distress HEENT: Atraumatic, PERRLA, EOMI, Mucous membr. moist/pink Respiratory: Clear to auscultation, Normal air movement Cardiovascular: Regular rate, Normal S1, Normal S2 Abdominal: Normal bowel sounds, Soft, Other (Midepigastric tenderness to palpation, severe right upper quadrant tenderness to palpation.) Extremities: No edema, Normal pulses Skin: No rashes Neuro: Normal gait, Normal speech Psych/Mental Status: Mental status NL, Mood NL Labs/Xrays Labs Test 01/14/25 23:47 01/14/25 23:35 Range/Units White Blood Count 13.0 H 4.4-10.8 10^3/uL Red Blood Count 4.77 4.0-5.20 10^6/uL Hemoglobin 14.0 12.2-16.2 g/dL Hematocrit 41.5 36.0-46.0 % Mean Corpuscular Volume 87.0 80.0-100.0 fL Mean Corpuscular Hemoglobin 29.2 28.0-32.0 pg Mean Corpuscular Hemoglobin Concent 33.6 32.0-36.0 g/dL Red Cell Distribution Width 13.0 11.8-14.3 % Platelet Count 288 140-450 10^3/uL Mean Platelet Volume 9.2 6.9-10.8 fL Neutrophils (%) (Auto) 61.1 37.0-80.0 % Lymphocytes (%) (Auto) 28.6 10.0-50.0 % Monocytes (%) (Auto) 8.6 0.0-12.0 % Eosinophils (%) (Auto) 1.3 0.0-7.0 % Basophils (%) (Auto) 0.4 0.0-2.0 % Neutrophils # (Auto) 7.9 1.6-8.6 10 ^3/uL Lymphocytes # (Auto) 3.7 0.4-5.4 10 ^3/uL Monocytes # (Auto) 1.1 0-1.3 10 ^3/uL Eosinophils # (Auto) 0.2 0-0.8 10 ^3/uL Basophils # (Auto) 0.1 0-0.2 10 ^3/uL Nucleated Red Blood Cells 0.0 % Sodium Level 139 136-145 mmol/L Potassium Level 3.5 3.5-5.1 mmol/L Chloride Level 102 98-107 mmol/L Carbon Dioxide Level 29 20-31 mmol/L Anion Gap 8 5-15 Blood Urea Nitrogen 12 9-23 mg/dL Creatinine 0.91 0.550-1.02 mg/dL Glomerular Filtration Rate Calc 84 >90 mL/min BUN/Creatinine Ratio 13.2 10.0-20.0 Serum Glucose 110 H 74-106 mg/dL Calcium Level 9.3 8.7-10.4 mg/dL Total Bilirubin 0.2 0.2-1.0 mg/dL Aspartate Amino Transferase (AST) 21 13-40 U/L Alanine Aminotransferase (ALT) 25 7-40 U/L Alkaline Phosphatase 89 46-116 U/L Total Protein 7.7 5.7-8.2 g/dL Albumin 4.5 3.2-4.8 g/dL Lipase 39 12-53 U/L Urine Color Light-yellow Yellow Urine Clarity Clear Clear Urine pH 6.0 5.0-9.0 Urine Specific [place] 1.016 1.001-1.035 Urine Protein Negative Negative Urine Ketones Negative Negative Urine Blood 3+ H Negative /uL Urine Nitrite Negative Negative Urine Bilirubin Negative Negative Urine Urobilinogen Normal Negative mg/dL Urine Leukocyte Esterase Negative Negative /uL Urine RBC 182 0 - 4 /hpf Urine Microscopic WBC 4 0-5 /HPF Urine Squamous Epithelial Cells Few <5 /hpf Urine Transitional Epithelial Cells Few <2 /hpf Urine Bacteria Few H None Seen /hpf Urine Mucus Few None Seen Urine Glucose Normal Normal mg/dL Urine Test Negative Negative SEPSIS Sepsis Screen Date sepsis recognized/suspect: Jan 14, 2025 Time Sepsis recognized/suspect: 2315 Recent Procedure: No On Antibiotic Therapy: No Respiratory Rate >20: No Heart Rate >90: No Temp<36 C (96.8 F) or >38.3 C: No SBP <90 or MAP <65 mmHG: No New Acute Mental Status Change: No Is the patient on CPAP, BIPAP,: No Physician Orders Gallbladder (01/14/25 23:00) Beta Hcg, Quantitative (01/15/25 01:33) Admit (01/15/25 01:57) Allergies (01/15/25 01:57) Code Status (01/15/25 01:57) 0.9% Ns 1000 Ml (01/15/25 02:00) Ondansetron Hcl (Zofran) (01/15/25 02:00) Complete Blood Count (01/16/25 04:00) Comprehensive Metabolic Panel (01/16/25 04:00) Npo (Nothing By Mouth) Diet (01/15/25 Breakfast) Condition: Unstable (01/15/25 01:57) Morphine Sulfate Injection (01/15/25 02:00) Sequential Compression Device (01/15/25 ) Notify Of Changes From Base (01/15/25 01:57) Ketorolac Injection (Toradol Injection) (01/15/25 02:00) Pantoprazole (Protonix) (01/15/25 10:00) Blood Culture (01/15/25 01:57) Urine Bacterial Culture (01/15/25 01:57) Mrsa Screen (01/15/25 01:57) Ceftriaxone Ivpb Rocephin (01/15/25 02:00) Metronidazole Ivpb Flagyl (01/15/25 02:00) Nm Hida Scan (01/15/25 01:57) Lactic Acid W/ Reflex Order (01/15/25 02:01) Vital Signs Date Time Temp Pulse Resp B/P (MAP) Pulse Ox O2 Delivery O2 Flow Rate FiO2 01/15/25 01:06 97.6 93 22 140/87 (104) 100 97.6 01/14/25 23:14 97.7 99 18 144/95 100 97.7 Laboratory Tests Test 01/14/25 23:47 White Blood Count 13.0 10^3/uL (4.4-10.8) H Medications Medications Dose Ordered Sig/Be Route Start Time Stop Time Status Last Admin Dose Admin Al Hydrox/Mg Hydrox/Simethicone 30 ml ONCE ONCE PO 01/14/25 23:45 01/14/25 23:46 DC 01/14/25 23:45 30 ML Famotidine 20 mg ONCE ONCE PO 01/14/25 23:45 01/14/25 23:46 DC 01/15/25 01:05 20 MG Ondansetron HCl 4 mg ONCE ONCE PO 01/14/25 23:45 01/14/25 23:46 DC 01/15/25 01:05 4 MG Assessment/Plan Assessment/Plan Acute intractable abdominal pain Probable acute cholecystitis Choledocholithiasis can not be ruled out Lactic acidosis Sepsis due to above - gallbladder ultrasound:Cholelithiasis with positive sonographic pat's sign. No gallbladder wall thickening. Findings suggest but are otherwise equivocal for cholecystitis. Please correlate clinically. Mild prominence of the common bile duct without a sizable, intraductal lesion identified. Distal ductal obstruction can not be excluded. MRCP may be considered to further evaluate these findings. - ordered HIDA scan - IV ceftriaxone, IV metronidazole - NPO - IV morphine 2 mg as needed for severe pain, IV Toradol 15 mg as needed for moderate pain - IV NS 1 L bolus Acute complicated UTI - IV ceftriaxone - IV NS at 75 cc/hour History of gestational diabetes - monitor PUD prophylaxis: protonix 40mg DVT prophylaxis: SCD Goals of care: Full code, discussed for >16 minutes on 01/15/2025 Plan discussed with patient Plan discussed with Dr. Wiley Plan discussed with: Patient, Other (RN) My Orders Orders - PHILIP HENDERSON RESIDENT Procedure Category Date Status Time Beta Hcg, Quantitative LAB 01/15/25 In Process 01:33 Admit ADMIT 01/15/25 Transmitted 01:57 Allergies PROSPER 01/15/25 In Process 01:57 Code Status CODE 01/15/25 Transmitted 01:57 0.9% Ns 1000 Ml PHA 01/15/25 Transmitted 02:00 Ondansetron Hcl PHA 01/15/25 Transmitted (Zofran) 02:00 Complete Blood Count LAB 01/16/25 Verified 04:00 Comprehensive LAB 01/16/25 Verified Metabolic Panel 04:00 Npo (Nothing By DIET 01/15/25 Transmitted Mouth) Diet Breakfast Condition: Unstable PROSPER 01/15/25 In Process 01:57 Morphine Sulfate PHA 01/15/25 Transmitted Injection 02:00 Sequential PROSPER 01/15/25 In Process Compression Device Notify Of Changes PROSPER 01/15/25 In Process From Base 01:57 Ketorolac Injection PHA 01/15/25 Transmitted (Toradol Injection) 02:00 Pantoprazole PHA 01/15/25 Transmitted (Protonix) 10:00 Blood Culture ZHANNA 01/15/25 Transmitted 01:57 Urine Bacterial ZHANNA 01/15/25 Transmitted Culture 01:57 Mrsa Screen ZHANNA 01/15/25 Transmitted 01:57 Ceftriaxone Ivpb PHA 01/15/25 Transmitted Rocephin 02:00 Metronidazole Ivpb PHA 01/15/25 Transmitted Flagyl 02:00 Nm Hida Scan NM 01/15/25 Logged 01:57 Lactic Acid W/ Reflex LAB 01/15/25 Verified Order 02:01 Date of Service: Jan 15, 2025 Billing Provider: MAULIK WILEY MD Common Visit Codes: [id number] INP/OBS CARE (HIGH) Secondary Visit Codes: [id number] CARE PLAN 30 MINUTES PHILIP HENDERSON RESIDENT Jan 15, 2025 02:07
[2025-01-15 02:55] LABS: Lactic Acid w/Reflex 2.2 mmol/L (0.4-2.0)
[2025-01-15 03:06] VITALS: BP 151/92; PULSE 91; RESP 16; TEMP 97.4; O2SAT 100
[2025-01-15] MEDS: KETOROLAC TROMETH 30 MG/ML 1ML VIAL IV PRN (03:11)
[2025-01-15] MEDS: cefTRIAXone 1GM/50ML D5W 50 ML IV SCH (03:16)
[2025-01-15] MEDS: SODIUM CHLORIDE 0.9% 1,000 ML IV ONE (03:24)
--- NOTE | 2025-01-15 06:51 | DVHDSRES ---
Discharge Summary Date of Admission Resident Creating Document: PHILIP HENDERSON RESIDENT Jan 15, 2025 at 01:57 Date of Discharge: Jan 15, 2025 Admitting Diagnosis Acute intractable abdominal pain Labs/Diagnostic Data: Laboratory Results Test 01/15/25 02:10 01/14/25 23:47 01/14/25 23:35 Lactic Acid Level 2.2 mmol/L (0.4-2.0) White Blood Count 13.0 10^3/uL (4.4-10.8) Red Blood Count 4.77 10^6/uL (4.0-5.20) Hemoglobin 14.0 g/dL (12.2-16.2) Hematocrit 41.5 % (36.0-46.0) Mean Corpuscular Volume 87.0 fL (80.0-100.0) Mean Corpuscular Hemoglobin 29.2 pg (28.0-32.0) Mean Corpuscular Hemoglobin Concent 33.6 g/dL (32.0-36.0) Red Cell Distribution Width 13.0 % (11.8-14.3) Platelet Count 288 10^3/uL (140-450) Mean Platelet Volume 9.2 fL (6.9-10.8) Neutrophils (%) (Auto) 61.1 % (37.0-80.0) Lymphocytes (%) (Auto) 28.6 % (10.0-50.0) Monocytes (%) (Auto) 8.6 % (0.0-12.0) Eosinophils (%) (Auto) 1.3 % (0.0-7.0) Basophils (%) (Auto) 0.4 % (0.0-2.0) Neutrophils # (Auto) 7.9 10 ^3/uL (1.6-8.6) Lymphocytes # (Auto) 3.7 10 ^3/uL (0.4-5.4) Monocytes # (Auto) 1.1 10 ^3/uL (0-1.3) Eosinophils # (Auto) 0.2 10 ^3/uL (0-0.8) Basophils # (Auto) 0.1 10 ^3/uL (0-0.2) Nucleated Red Blood Cells 0.0 % Sodium Level 139 mmol/L (136-145) Potassium Level 3.5 mmol/L (3.5-5.1) Chloride Level 102 mmol/L (98-107) Carbon Dioxide Level 29 mmol/L (20-31) Anion Gap 8 (5-15) Blood Urea Nitrogen 12 mg/dL (9-23) Creatinine 0.91 mg/dL (0.550-1.02) Glomerular Filtration Rate Calc 84 mL/min (>90) BUN/Creatinine Ratio 13.2 (10.0-20.0) Serum Glucose 110 mg/dL (74-106) Calcium Level 9.3 mg/dL (8.7-10.4) Total Bilirubin 0.2 mg/dL (0.2-1.0) Aspartate Amino Transferase (AST) 21 U/L (13-40) Alanine Aminotransferase (ALT) 25 U/L (7-40) Alkaline Phosphatase 89 U/L (46-116) Total Protein 7.7 g/dL (5.7-8.2) Albumin 4.5 g/dL (3.2-4.8) Lipase 39 U/L (12-53) Beta HCG, Quantitative < 0.0 mIU/mL (1.5-4.2) Urine Color Light-yellow (Yellow) Urine Clarity Clear (Clear) Urine pH 6.0 (5.0-9.0) Urine Specific [place] 1.016 (1.001-1.035) Urine Protein Negative (Negative) Urine Ketones Negative (Negative) Urine Blood 3+ /uL (Negative) Urine Nitrite Negative (Negative) Urine Bilirubin Negative (Negative) Urine Urobilinogen Normal mg/dL (Negative) Urine Leukocyte Esterase Negative /uL (Negative) Urine RBC 182 /hpf (0 - 4) Urine Microscopic WBC 4 /HPF (0-5) Urine Squamous Epithelial Cells Few /hpf (<5) Urine Transitional Epithelial Cells Few /hpf (<2) Urine Bacteria Few /hpf (None Seen) Urine Mucus Few (None Seen) Urine Glucose Normal mg/dL (Normal) Urine Test Negative (Negative) Other Laboratory Tests 01/14/25 23:47 Brief Hx & Hospital Course: Patient is a 34-year-old female who is 3 months without any significant past medical history comes to the hospital for acute intractable abdominal pain. According to the patient pain started approximately around 8:00 p.m. on 01/14/2025, she localizes the pain to the midepigastrium with radiation to the right upper quadrant, describes the pain as constant 10/10 in intensity worsened with eating and relieved by lying on her side. Pain is associated with chills. Patient notes she has been experiencing similar pain off and on for the past many months, however current episode was more severe and persistent than prior episodes. On review of systems patient is complaining of chills and abdominal pain. Gallbladder ultrasound showed cholelithiasis with positive sonographic Pat's sign, no gallbladder wall thickening and mild prominence of CBD. Hospital course: Patient was started on IV ceftriaxone, IV metronidazole. HIDA scan was ordered. Pain was managed with IV Toradol and IV morphine, IV Protonix was added for PUD prophylaxis. However, patient left against medical advice before further evaluation and management could be completed. Condition at Discharge: Undetermined Final Diagnosis/Problems List Acute intractable abdominal pain Probable acute cholecystitis Choledocholithiasis can not be ruled out Lactic acidosis Sepsis due to above Acute complicated UTI History of gestational diabetes Discharge Disposition: AMA Discharge Instruct/Medications Scheduled Vit W/ Ferrous Fumara ( One Daily), 1 TAB PO DAILY, (Reported) Scheduled PRN Ibuprofen Micronized (Motrin Tablet), 600 MG PO Q6HP PRN Discharge Statement: "Patient was advised to return to the ER or call 911 if any headaches, dizziness, shortness of breath, chest pain, abdominal pain, bleeding, fevers, or worsening of medical condition. Patient was counseled about treatment plan, medications, possible side effects, patientverbalized understanding. All questions were answered to the best of my ability. This discharge took greater then 30 minutes in planning, reviewing documentation, counseling the patient, and discussing with other team members." ASSESSMENT ASSESSMENT Assessment PHILIP HENDERSON RESIDENT Jan 15, 2025 06:51
[2025-01-15] MEDS ORDERED: PANTOPRAZOLE 40 MG/10 ML VIAL INJ IV SCH (10:00)
== END 2025-01-15 04:30 | disposition left against medical advice (07) | DRG 872 ==
LOC: ER 23:15 → OVERFLOW 01-15 01:57
PROVIDERS: ATTEND Internal Medicine
DX: A41.9 Sepsis, unspecified organism (principal); K80.62 Calculus of gallbladder and bile duct with acute cholecystitis without obstruction; E87.20 Acidosis, unspecified; N39.0 Urinary tract infection, site not specified; Z53.29 Procedure and treatment not carried out because of patient's decision for other reasons
CPT/HCPCS: 36415; 76705; 80053; 81001; 81025; 83605; 83690; 84702; 85025; 87040; 87086; 96365; 96375; G0378; J1885; J3490; Q0162

== ENCOUNTER 2025-02-23 09:12 | Day surgery (SDC) | payer OTHER ==
[2025-02-20 15:01] LABS: Hematocrit 42.2 % (36.0-46.0); Hemoglobin 14.2 g/dL (12.2-16.2); Mean Corpuscular Hemoglobin 28.9 pg (28.0-32.0); Mean Corpuscular Volume 85.8 fL (80.0-100.0); Nucleated Red Blood Cells % 0.0 %
[2025-02-20 15:18] LABS: Urine Protein, UAD 1+ (Negative); Urine WBC Clumps PRESENT /hpf (None Seen)
[2025-02-20 15:19] LABS: INR 1.0 (0.9-1.15); Partial Thromboplastin Time 27.5 SEC (24.5-34.5); Prothrombin Time 10.6 sec (9.3-11.8)
[2025-02-20 15:29] LABS: Alanine Aminotransferase 16 U/L (7-40); Albumin 4.3 g/dL (3.2-4.8); Alkaline Phosphatase 84 U/L (46-116); Anion Gap 9 (5-15); BUN/Creatinine Ratio 16.3 (10.0-20.0); Blood Urea Nitrogen 13 mg/dL (9-23); Calcium 9.3 mg/dL (8.7-10.4); Carbon Dioxide 29 mmol/L (20-31); Chloride 104 mmol/L (98-107); Glucose 101 mg/dL (74-106); Potassium 3.9 mmol/L (3.5-5.1); Sodium 142 mmol/L (136-145); Total Protein 7.5 g/dL (5.7-8.2)
[2025-02-20 15:30] LABS: Bilirubin, Total 0.3 mg/dL (0.2-1.0)
[~2025-02-23] VITALS: Ht 165.1 cm; Wt 97.5 kg
[2025-02-23] MEDS ORDERED: KETAMINE 50mg/ML 1ml syringe IM ONE (09:13)
[2025-02-23] MEDS ORDERED: KETOROLAC TROMETH 30 MG/ML 1ML VIAL IV ONE (14:00)
[2025-02-23] MEDS ORDERED: METOCLOPRAMIDE HCL 5MG/ml INJ 2ml VIAL IV PRN (14:00)
[2025-02-23] MEDS ORDERED: ACCU-CHEK COMFORT CURVE STRIP VI ONE (14:00)
[2025-02-23] MEDS ORDERED: MORPHINE SULFATE 4 MG/ML SYR/VIAL IV PRN (14:00)
[2025-02-23] MEDS ORDERED: HYDROmorphone HCL 2 MG/ML VL/or syr IV PRN ×2 (14:00)
[2025-02-23] MEDS ORDERED: MORPHINE SULFATE INJ 2 MG/ml SYRG IV PRN (14:00)
[2025-02-23] MEDS: CELECOXIB 100 MG CAP ONE (15:10)
[2025-02-23] MEDS: GABAPENTIN 300 MG CAP ONE (15:10)
[2025-02-23] MEDS ORDERED: CELECOXIB 100 MG CAP PO ONE (15:15)
[2025-02-23] MEDS ORDERED: ACETAMINOPHEN IV 1000 MG/100ML (10MG/ML) IV ONE (15:15)
[2025-02-23] MEDS ORDERED: GABAPENTIN 300 MG CAP PO ONE (15:15)
[2025-02-23] MEDS ORDERED: LIDOCAINE 2%HCL (LOCAL ANESTH.) INJ 10ml MDV ONE (15:24)
[2025-02-23] MEDS ORDERED: ROCURONIUM 10MG/ML 10ML VIAL IV ONE (15:28)
[2025-02-23] MEDS ORDERED: SUGAMMADEX 200mg/2ml Vial (100MG/ML) IV ONE (15:28)
[2025-02-23] MEDS ORDERED: GLYCOPYRROLATE 0.2 MG/ML 1ML VIAL ONE (15:28)
[2025-02-23] MEDS ORDERED: KETOROLAC TROMETH 30 MG/ML 1ML VIAL ONE (15:28)
[2025-02-23] MEDS ORDERED: ONDANSETRON HCL 4 MG/2 ML VIAL ONE ×2 (15:28→18:01)
[2025-02-23] MEDS ORDERED: PROPOFOL 10 MG/ML 20 ML IV ONE (15:28)
[2025-02-23] MEDS: ACETAMINOPHEN IV 100 ML IV ONE (15:30)
[2025-02-23] MEDS: BUPIVACAINE 0.25% INJ 50ML VIAL IJ ONE (15:54)
[2025-02-23] MEDS: BUPIVACAINE HCL 0.25% P/F 10 ML VIAL ONE (15:54)
[2025-02-23] MEDS ORDERED: ESMOLOL HCL 10 ML IV ONE (16:01)
[2025-02-23] MEDS ORDERED: fentaNYL CITRATE 100 MCG/2 ML VL ONE (16:48)
[2025-02-23 17:06] VITALS: PULSE 90; RESP 16; TEMP 98.5; O2SAT 100
[2025-02-23] MEDS ORDERED: FLUMAZENIL 0.1 MG/ML INJ 10ML MDV IV PRN (17:15)
[2025-02-23] MEDS ORDERED: hydrALAZINE HCL 20 MG/ML VL IV PRN (17:15)
[2025-02-23] MEDS ORDERED: NALOXONE HCL 0.4 MG/ML VIAL IV PRN (17:15)
[2025-02-23] MEDS ORDERED: fentaNYL CITRATE 100 MCG/2 ML VL IV PRN (17:15)
[2025-02-23] MEDS: HYDROmorphone HCL 2 MG/ML VL/or syr IV PRN (18:00)
[2025-02-23] MEDS: ONDANSETRON HCL 4 MG/2 ML VIAL IV PRN (18:00)
[2025-02-23] MEDS ORDERED: HYDROmorphone HCL 2 MG/ML VL/or syr ONE (18:01)
[2025-02-23 18:30] VITALS: BP 112/67; PULSE 98; RESP 21; O2SAT 95
--- NOTE | 2025-02-24 22:52 | DVHOP2 ---
Operative Report - 2 Report Details Date: 02/23/25 Preop Diagnosis: Symptomatic cholelithiasis Postop Diagnosis: Symptomatic cholelithiasis Surgeon: Ion Bethea MD Anesthesiologist: Johann Garibay CRNA Anesthesia: General Consent: The patient was informed of the risks and benefits of the procedure. These include but are not limited to complications of anesthesia, postoperative infection, incomplete relief of symptoms, recurrence of symptoms, damage to blood vessels, nerves and tendons, deep venous thrombosis, pulmonary embolism and possible need for repeat surgery in the future. Estimated Blood Loss: 5 mL Findings: Normal-appearing gallbladder, fatty liver Indications for Surgery: Symptomatic gallstones Name of Procedure Performed Laparoscopic cholecystectomy Procedure Details Procedure Details: Upon arrival to the operating room the patient was transferred to the operating table and placed in the supine position with arms extended. General e ndotracheal anesthesia was induced. Time-out was observed. Patient was prepped and draped in the standard sterile surgical fashion with chlorhexidine. I then made a infraumbilical curvilinear incision and carried that dissection down to fascia, once at the fascia I grasped the umbilical stalk with Patricia clamp. I then proceeded to walk the Patricia clamp to the base of the umbilical stalk and once at the base I proceeded to gain entry into the peritoneal cavity utilizing Mary technique. I then placed a fascial retention stitch in [id number] fashion with 0 Vicryl. I then introduced the Mary cannula and insufflated the peritoneal cavity to 15 mmHg with toleration. I then inserted a 30 degree 10 mm camera into the peritoneal cavity and surveyed the entry site no injuries. Patient was then placed in the reverse Trendelenburg [id number] position. I then placed 3 additional 5 mm trocars under direct vision at the epigastric area, right midclavicular subcostal area, and right flank area. I then directed my attention to liver and gallbladder. Gallbladder appeared normal with thin omental adhesions to it. Gallbladder was then grasped at the fundus and retracted cephalad and towards the right shoulder. Thin omental adhesions were lysed both bluntly and with cautery. I then placed a 2nd grasper at the infundibulum and retracted laterally. At this point Calot triangle was exposed. I then incised the peritoneum on either side of the base of the gallbladder and extended towards the liver. I then proceeded to fully skeletonize loss triangle and was able to identify 2 structures entering the gallbladder. These 2 structures were fully skeletonized and they were the cystic artery and cystic duct. Cystic artery was then double clipped proximally and 1 distal with 5 mm clips. The cystic duct was then milked for any stones, non felt. The cystic duct was then clipped with 3 proximal 5 mm clips and 1 distal. Both the artery and the duct were transected. I then dissected the gallbladder off of the liver bed with cautery. The superior 3rd of the gallbladder was intrahepatic and post some challenge to dissected off the liver. I had some bile and stone spillage. Once the gallbladder was fully off of the liver it was placed in the Endo-Catch bag and removed through the infraumbilical incision under direct vision. I then serially irrigated the gallbladder fossa, below the liver and above the liver until all effluent was clear and gallstones suctioned. I then took a look at the gallbladder fossa there were some spots of raw liver oozing, and they were cauterized. I also noted another spot at the falciform ligament attachment to the liver were ripped small portion of the liver during the retraction, this was cauterized. Hemostasis achieved. This concluded the intraperitoneal portion of the operation. All 5 mm ports were removed under direct vision, no bleeding coming from the abdominal wall. Peritoneal cavity was allowed to fully desufflate. Fascial retention suture that was previously placed was closed. All counts were complete and correct at the end of procedure. All skin sites were closed with 4-0 Monocryl and Dermabond. Marcaine 0.25% was used as local anesthetic. Patient tolerated the procedure well and was transferred to PACU in stable condition. Specimen: Gallbladder and contents Condition Stable Disposition Home ION CARBAJAL MD Feb 23, 2025 17:11
== END 2025-02-23 18:55 | disposition home or self-care (01) ==
LOC: SUR 09:12
PROVIDERS: ATTEND Student in an Organized Health Care Education/Training Program
DX: K80.10 Calculus of gallbladder with chronic cholecystitis without obstruction (principal); E11.9 Type 2 diabetes mellitus without complications; E28.2 Polycystic ovarian syndrome; E66.01 Morbid (severe) obesity due to excess calories; Z68.35 Body mass index [BMI] 35.0-35.9, adult
CPT/HCPCS: 36415; 47562; 80053; 81001; 81025; 85025; 85610; 85730; 86850; 86900; 86901; 88304; J0694; J1100; J1171; J1885; J2003; J2405; J2704; J3010; J3490; J0131

== ENCOUNTER 2025-04-26 07:07 | Outpatient (CLI) | payer OTHER ==
[2025-04-26 07:20] LABS: Hematocrit 43.8 % (36.0-46.0); Hemoglobin 14.9 g/dL (12.2-16.2); Mean Corpuscular Hemoglobin 29.7 pg (28.0-32.0); Mean Corpuscular Volume 87.5 fL (80.0-100.0); Nucleated Red Blood Cells % 0.0 %
[2025-04-26 08:04] LABS: Alanine Aminotransferase 20 U/L (7-40); Albumin 4.5 g/dL (3.2-4.8); Alkaline Phosphatase 83 U/L (46-116); Anion Gap 10 (5-15); BUN/Creatinine Ratio 13.2 (10.0-20.0); Blood Urea Nitrogen 10 mg/dL (9-23); Calcium 9.7 mg/dL (8.7-10.4); Carbon Dioxide 28 mmol/L (20-31); Chloride 104 mmol/L (98-107); Cholesterol 172 mg/dL (< 200); Glucose 95 mg/dL (74-106); HDL Cholesterol 42 mg/dL (40-59); Potassium 4.5 mmol/L (3.5-5.1); Sodium 142 mmol/L (136-145); Total Protein 7.7 g/dL (5.7-8.2); Triglycerides 103 mg/dL (< 150)
[2025-04-26 08:05] LABS: Bilirubin, Total 0.5 mg/dL (0.2-1.0)
[2025-04-26 08:16] LABS: Urine Protein, UAD TRACE (Negative)
== END 2025-04-26 17:00 | disposition home or self-care (01) ==
LOC: LAB 07:07
PROVIDERS: ATTEND Internal Medicine
DX: O24.419 Gestational diabetes mellitus in pregnancy, unspecified control (principal); Z00.00 Encounter for general adult medical examination without abnormal findings; Z3A.00 Weeks of gestation of pregnancy not specified
CPT/HCPCS: 36415; 80053; 80061; 81001; 83036; 84439; 84443; 85025